=== PATIENT | male | born 1995 | race Two or more races ===

== ENCOUNTER 2024-02-11 18:10 | Emergency (ER) | payer SELFPAY ==
[~2024-02-11] VITALS: Ht 160 cm; Wt 54.0 kg
[2024-02-11 21:17] VITALS: BP 120/83; PULSE 110; RESP 18; O2SAT 96
[2024-02-11 21:42] LABS: Urine Bacteria None Seen /hpf (None Seen)
[2024-02-11] MEDS ORDERED: KETOROLAC TROMETH 60MG/2ML VIAL IM ONE (21:45)
[2024-02-11 22:02] LABS: Basophils # (auto) 0.1 10 ^3/uL (0-0.2); Eosinophils # (auto) 0.1 10 ^3/uL (0-0.8); Eosinophils % (auto) 1.9 % (0.0-7.0); Hemoglobin 10.5 g/dL (13.5-17.5); Lymphocytes # (auto) 1.7 10 ^3/uL (0.4-5.4); Mean Corpuscular Hgb Conc. 33.5 g/dL (32.0-36.0); Monocytes # (auto) 0.6 10 ^3/uL (0-1.3); Neutrophils # (auto) 3.6 10 ^3/uL (1.6-8.6); White Blood Cell 6.1 10^3/uL (4.4-10.8)
[2024-02-11 22:04] LABS: Urine Amorphous Crystal FEW /hpf (None Seen); Urine Blood Negative /uL (Negative); Urine Clarity Ex.Turbid (Clear); Urine Color Yellow (Yellow); Urine Mucus FEW (None Seen); Urine Protein, UAD 1+ (Negative); Urine Urobilinogen 2 mg/dL (Negative); Urine WBC 7 /hpf (0 - 3); Urine pH 7.5 (5.0-9.0)
[2024-02-11 22:04] LABS: Basophils % (auto) 1.1 % (0.0-2.0); Hematocrit 31.4 % (41.0-53.0); Lymphocytes % (auto) 27.9 % (10.0-50.0); Mean Corpuscular Hemoglobin 35.2 pg (28.0-32.0); Monocytes % (auto) 10.3 % (0.0-12.0); Neutrophils % (auto) 58.8 % (37.0-80.0); Nucleated Red Blood Cells % 0.1 %; Red Blood Cells 2.99 10^6/uL (4.5-5.90); Red Cell Distribution Width 15.7 % (11.8-14.3)
[2024-02-11 22:14] LABS: Alanine Aminotransferase 63 U/L (7-40); Albumin 3.9 g/dL (3.2-4.8); Alkaline Phosphatase 230 U/L (46-116); Anion Gap 4 (5-15); Aspartate Aminotransferase 106 U/L (13-40); BUN/Creatinine Ratio 10.5 (10.0-20.0); Blood Urea Nitrogen 9 mg/dL (9-23); Calcium 9.7 mg/dL (8.5-10.1); Carbon Dioxide 29 mmol/L (20-30); Chloride 109 mmol/L (98-107); Glucose 100 mg/dL (74-106); Potassium 3.9 mmol/L (3.5-5.1); Sodium 142 mmol/L (136-145); Total Protein 7.6 g/dL (5.7-8.2)
[2024-02-11 22:37] LABS: Lipase 204 U/L (12-53)
[2024-02-12] MEDS ORDERED: SODIUM CHLORIDE 0.9% 1,000 ML IV ONE (00:45)
[2024-02-12] MEDS ORDERED: cefTRIAXone 1GM/50ML D5W 50 ML IV ONE (00:45)
[2024-02-12] MEDS ORDERED: MORPHINE SULFATE INJ 2 MG/ml SYRG IV PRN (02:45)
[2024-02-12] MEDS ORDERED: IBUPROFEN 600 MG TAB PO PRN (02:45)
[2024-02-12] MEDS ORDERED: D5W/SOD CHL 0.45% 1,000 ML IV SCH (02:45)
[2024-02-12] MEDS ORDERED: ONDANSETRON HCL 4 MG/2 ML VIAL IV PRN (02:45)
[2024-02-12] MEDS ORDERED: DOCUSATE SOD 100 MG CAP PO PRN (02:45)
[2024-02-12] MEDS ORDERED: HYDROcodone-ACET 5/325MG TAB PO PRN (02:45)
[2024-02-12] MEDS ORDERED: cefTRIAXone 1GM/50ML D5W 50 ML IV SCH (09:00)
[2024-02-12] MEDS ORDERED: FOLIC ACID 1 MG TAB PO SCH (10:00)
[2024-02-12] MEDS ORDERED: MULTIPLE VITAMIN TAB PO SCH (10:00)
[2024-02-12] MEDS ORDERED: THIAMINE HCL 100 MG TAB PO SCH (10:00)
== END 2024-02-12 03:20 | disposition left against medical advice (07) ==
LOC: ER 18:10
DX: N39.0 Urinary tract infection, site not specified (principal); D64.9 Anemia, unspecified; F10.129 Alcohol abuse with intoxication, unspecified; K85.90 Acute pancreatitis without necrosis or infection, unspecified; R74.01 Elevation of levels of liver transaminase levels; Y90.0 Blood alcohol level of less than 20 mg/100 ml
CPT/HCPCS: 36415; 74176; 80053; 80320; 81001; 83690; 84484; 85025